=== PATIENT | female | born 1960 | race Caucasian/White ===

== ENCOUNTER 2024-11-14 16:58 | Emergency (ER) | payer BC, OTHER ==
[~2024-11-14] VITALS: Ht 165.1 cm; Wt 54.4 kg
[2024-11-14] MEDS ORDERED: LORAZEPAM 0.5 MG TABLET ONE (17:59)
[2024-11-14] MEDS: LORAZEPAM 1 MG TABLET PO ONE (18:00)
[2024-11-14] MEDS ORDERED: IPRA12.9 INH (18:36)
[2024-11-14] MEDS ORDERED: ALBU18HF2 INH (18:36)
[2024-11-14] MEDS ORDERED: PRED20TA PO (18:38)
[2024-11-14] MEDS ORDERED: ESCI10TA PO (18:44)
[2024-11-14 19:28] VITALS: BP 138/92; TEMP 98.5; O2SAT 95
== END 2024-11-14 19:24 | disposition home or self-care (01) ==
LOC: ER 17:04
DX: J44.0 Chronic obstructive pulmonary disease with (acute) lower respiratory infection (principal); J20.9 Acute bronchitis, unspecified; R05.9 Cough, unspecified; F41.9 Anxiety disorder, unspecified; F17.200 Nicotine dependence, unspecified, uncomplicated; I11.9 Hypertensive heart disease without heart failure; Z79.52 Long term (current) use of systemic steroids; Z79.899 Other long term (current) drug therapy; Z88.0 Allergy status to penicillin
CPT/HCPCS: 71045-TC

== ENCOUNTER 2025-02-23 15:23 | Emergency (ER) | payer BC, OTHER ==
[~2025-02-23] VITALS: Ht 167.6 cm; Wt 59.9 kg
[~2025-02-23 15:23] MED LIST: ALBU18HF2 INH; ESCI10TA PO; IPRA12.9 INH; PRED20TA PO
[2025-02-23] MEDS ORDERED: hydrOXYzine 10 MG TABLET ONE (16:14)
[2025-02-23] MEDS ORDERED: ACETAMINOPHEN 325 MG TABLET ONE (16:15)
[2025-02-23] MEDS ORDERED: CLINDAMYCIN HCL 150 MG CAPSULE ONE (16:15)
[2025-02-23] MEDS: hydrOXYzine 10 MG TABLET PO ONE (16:22)
[2025-02-23] MEDS: ACETAMINOPHEN 325 MG TABLET PO ONE (16:23)
[2025-02-23] MEDS: CLINDAMYCIN HCL 150 MG CAPSULE PO ONE (16:23)
[2025-02-23] MEDS: IV NS 0.9% 1,000 ML BAG IV ONE (16:57)
[2025-02-23 17:00] LABS: BASOPHILS # (AUTO) 0.1 K/uL (0.0-0.2); BASOPHILS % (AUTO) 0.7 % (0.0-2.0); EOSINOPHILS # (AUTO) 0.1 K/uL (0.0-0.7); HEMATOCRIT 43 % (33-45); HEMOGLOBIN 14.6 g/dL (11.5-14.8); LYMPHOCYTES # (AUTO) 1.6 K/uL (0.8-4.8); LYMPHOCYTES % (AUTO) 19.5 % (20.0-44.0); MEAN CORPUSCULAR HEMOGLOBIN 29 PG (26.0-33.0); MEAN CORPUSCULAR HGB CONC 34 g/dl (31.0-36.0); MEAN CORPUSCULAR VOLUME 85 fL (82-100); MONOCYTES # (AUTO) 0.5 K/uL (0.1-1.30); MONOCYTES % (AUTO) 5.9 % (2.0-12.0); NEUTROPHILS # (AUTO) 5.9 K/uL (1.8-8.9); NEUTROPHILS % (AUTO) 72.9 % (43.0-81.0); PLATELET COUNT (AUTO) 210 K/uL (150-450); RED BLOOD CELL COUNT(AUTO) 5.09 MIL/uL (4.0-5.2); RED CELL DISTRIBUTION WIDTH 16.3 % (11.5-15.0); WHITE BLOOD COUNT (AUTO) 8.1 K/uL (4.3-11.0)
[2025-02-23 17:02] LABS: APPEARANCE,URINE CLEAR (CLEAR); BILIRUBIN,URINE Negative (NEGATIVE); BLOOD, URINE Negative Ery/uL (NEGATIVE); COLOR,URINE YELLOW (YELLOW); KETONES,URINE Negative (NEGATIVE); LEUKOCYTE ESTERASE ,URINE Negative (NEGATIVE); PROTEIN,URINE Negative (NEGATIVE); UGLUCOSE Negative (NEGATIVE); UROBILINOGEN,URINE 0.2 EU/dL (0.2)
[2025-02-23 17:03] LABS: NITRITE, URINE NEGATIVE (NEGATIVE)
[2025-02-23 17:08] LABS: CALCIUM, SERUM 9.9 mg/dL (8.5-10.1); CARBON DIOXIDE 28 mmol/L (21-32); CHLORIDE 106 mmol/L (98-107); CREATININE 0.8 mg/dL (0.6-1.3); GLUCOSE 101 mg/dL (74-106); POTASSIUM 3.4 mmol/L (3.5-5.1); SODIUM SERUM 142 mmol/L (136-145); UREA NITROGEN, BLOOD 15 mg/dL (7-18)
[2025-02-23] MEDS ORDERED: KETOROLAC TROMETHAMINE 15 MG/ML VIAL ONE (17:17)
[2025-02-23 17:22] LABS: ALANINE AMINOTRANSFERASE 21 U/L (12-78); ALKALINE PHOSPHATASE 188 U/L (46-116); BILIRUBIN,DIRECT 0.1 mg/dL (0.0-0.2); BILIRUBIN,TOTAL 0.4 mg/dL (0.2-1.0)
[2025-02-23 17:23] LABS: ALBUMIN 3.4 g/dL (3.4-5.0); ASPARTATE AMINOTRANSFERASE 21 U/L (15-37); LIPASE 35 U/L (16-77); TOTAL PROTEIN, SERUM 8.5 g/dL (6.4-8.2)
[2025-02-23] MEDS: KETOROLAC TROMETHAMINE 15 MG/ML VIAL IV ONE (17:23)
[2025-02-23] MEDS ORDERED: CLIN300C12 PO (19:02)
[2025-02-23] MEDS ORDERED: MORPHINE SULFATE INJ 2 MG/ML DISP.SYRIN ONE (19:23)
[2025-02-23] MEDS: MORPHINE SULFATE INJ 2 MG/ML DISP.SYRIN IV ONE (19:29)
[2025-02-23 21:04] VITALS: BP 142/84; TEMP 98.6; O2SAT 98
== END 2025-02-23 21:05 | disposition home or self-care (01) ==
LOC: ER 15:31
DX: L98.8 Other specified disorders of the skin and subcutaneous tissue (principal); E78.5 Hyperlipidemia, unspecified; F17.200 Nicotine dependence, unspecified, uncomplicated; F41.9 Anxiety disorder, unspecified; G89.29 Other chronic pain; I10 Essential (primary) hypertension; J44.9 Chronic obstructive pulmonary disease, unspecified; Z79.52 Long term (current) use of systemic steroids; Z60.2 Problems related to living alone; Z79.899 Other long term (current) drug therapy; Z88.0 Allergy status to penicillin
CPT/HCPCS: 99285; 96374; 71045; 96361; 96375; 93005; 85025; 80048; 83690; 80076; 81003; 36415; 84484; 82962; J1885; Q0177; J2270; 87086-TC